=== PATIENT | male | born 2000 | race Two or more races ===

== ENCOUNTER 2020-08-28 00:28 | Emergency (ER) | payer BC, OTHER ==
[~2020-08-28] VITALS: Ht 180.3 cm; Wt 97.5 kg
[2020-08-28] MEDS ORDERED: TDAP DIPH,PERTUSS,TET VAC/PF 0.5 ML DISP.SYRIN IM ONE ×2 (01:00→01:11)
--- NOTE | 2020-08-28 01:43 | NUR ---
Patient discharged to home in stable condition. Written and verbal after care instructions given. Patient verbalizes understanding of instructions. Stressed follow up or return to ER for worsening s/s.
== END 2020-08-28 01:45 | disposition home or self-care (01) ==
LOC: ER 00:41
DX: S61.012A Laceration without foreign body of left thumb without damage to nail, initial encounter (principal); W26.0XXA Contact with knife, initial encounter; Y92.89 Other specified places as the place of occurrence of the external cause
CPT/HCPCS: 90715; A4217; A4663